=== PATIENT | male | born 1980 | race African-American/Black ===

== ENCOUNTER 2021-01-11 17:31 | Emergency (ER) | payer SELFPAY ==
--- NOTE | ~2021-01-11 | CT_ITS ---
EXAMINATION: CT brain wo con DATE: 01/11/2021 18:14 INDICATION: Head injury. Seizure. TECHNIQUE: Computed tomography (CT) of the head was performed without intravenous contrast. The mA wa s adjusted according to patient size. Iterative reconstruction technique was employed. Exam dose: 60 5.33 mGy-cm total exam DLP. COMPARISON: None FINDINGS: No intracranial mass lesion or hemorrhage or cerebrovascular accident, midline shift or mas s effect effect, subdural or epidural hematoma is detected. Normal ventricular size. Normal mahajan-whit e matter differentiation. No skull fracture or bone destruction. The mastoid air cells and included paranasal sinuses are unrem arkable. IMPRESSION: Negative Reviewed, dictated and finalized at [facility] Reviewed, dictated and finalized at [facility] IMPRESSION: Negative
--- NOTE | 2021-01-11 17:27 | PC.NURSE ---
pt seen wandering in ER parking lot. Pt walks in attempting to get through locked doors. pt yells I'm a pt let me through. Asked pt for name, pt refused, no pt arm band in place. Pt belligerent, yelling i fell and busted my head cant you see! again asked pt for name and he continued to yell he was a pt and try to break through locked doors. ED security in scene. States RN was looking for pt. Pt states see! Pt yelling i can come and go as I please, I needed to get fresh air. Informed pt of rules and safety of ER. Pt refuses to listen. States he can do what he wants. Security to escort pt back to his room.
--- NOTE | 2021-01-11 17:38 | ED.SEIZURE ---
HPI - Seizure General Chief Complaint: Seizure Stated Complaint: SEIZURE Source: patient Mode of arrival: ambulatory Limitations: other (patient does not fully remember event) History of Present Illness HPI Narrative: This is a 40 year old male that presents to the ER via EMS after a seizure today. Reports he was at work and had a seizure. Upon EMS arrival patient was post ictal. Patient does report history of seizures. He has not taken his antiepileptic in over a year because he did not feel he needed it anymore. Denies fever, vision changes, vomiting, numbness or weakness. Related Data Allergies Allergy/AdvReac Type Severity Reaction Status Date / Time No Known Allergies Allergy Verified 01/11/21 21:08 Review of Systems Review of Systems: CONSTITUTIONAL: Denies fever GASTROINTESTINAL: Denies vomiting MUSCULOSKELETAL: Denies back pain, joint pain, or myalgia. NEUROLOGIC: Denies headache, numbness, or weakness. All systems reviewed & are unremarkable except as noted in HPI and below PMFSH Past Medical History Medical History (Updated 01/11/21 @ 21:06 by Zoie Batista PA-C) History of epilepsy Social History Social History (Updated 01/11/21 @ 17:42 by Zoie Batista PA-C) Smoking status: Never smoker Substance use: never Exam Narrative: GENERAL: Well-appearing, well-nourished, and in no acute distress. HEAD: Normocephalic. 3 cm linear laceration into subcutaneous tissue present to the back of the scalp EYES: PERRLA and EOMI. ENT: Nares clear, no rhinorrhea or epistaxis. Mucous membranes moist. Oropharynx without tonsillar hypertrophy exudate or other lesions. Bilateral TMs pearly mahajan non-bulging NECK: Supple. No adenopathy or masses. No midline cervical spine tenderness CHEST: Clear to auscultation. No respiratory distress. No wheezes rales or rhonchi HEART: Regular rate and rhythm. No murmur heard. Normal peripheral pulses. EXTREMITIES: Normal range of motion. No edema or obvious deformity. SKIN: Warm, dry, no rash. NEURO: No focal deficits. Alert and oriented x3. Cranial nerves II to XII grossly intact PSYCH: Normal mood and affect Course Vital Signs Vital signs: Vital Signs Pulse Rate 77 01/11/21 21:07 Respiratory Rate 18 01/11/21 21:07 Blood Pressure 152/98 H 01/11/21 21:07 Pulse Oximetry 100 01/11/21 21:07 Pulse Rate 77 01/11/21 21:07 Respiratory Rate 18 01/11/21 21:07 Blood Pressure 152/98 H 01/11/21 21:07 Pulse Oximetry 100 01/11/21 21:07 Procedures Laceration Laceration 1: Date: 01/11/21 Time: 21:06 Site: scalp Size (cm): 3 Description: linear Depth: simple, single layer Local Anesthetic: lidocaine 1% and with epi Amount of anesthesia used (mL): 2 Pre-repair: irrigated ====== Skin Level ====== Skin layer closed with: regina Number of sutures: 6 ====== Subcutaneous Layer ====== ====== Muscle Layer ====== ====== Tendon Layer ====== MDM - Seizure MDM Narrative Medical decision making narrative: Patient presents the emergency department after a seizure today. Patient was at work and had witnessed seizure-like activity. Upon EMS arrival patient was postictal. On arrival to the ED patient is alert and oriented. He is neurologically intact. He has no complaints other than a laceration to the scalp. His vitals are stable. CBC and metabolic panel without concerning findings. CT scan of the brain is without acute findings. Patient's wound was irrigated and closed with regina. Patient refused a tetanus vaccination. Made aware of risks of doing so. Patient does have history of seizures. Reports he stopped taking his antiepileptic medication because he did not think he needed anymore. He has no interest in restarting it. He does report that if I give him a neurologist he will follow up with him. Patient will be given neurology for follow-up. He was given [place]
--- NOTE | 2021-01-11 17:49 | PC.NURSE ---
patient refused tetnus shot. refused to provide information about allergies or medications
[2021-01-11 18:05] LABS: Basophils Absolute Auto 0.1 K/mm3 (0.0-0.1); Basophils Percent Auto 0.5 % (0.2-1.2); Eosinophils Absolute Auto 0.1 K/mm3 (0-0.3); Eosinophils Percent Auto 0.9 % (0-4.4); Hematocrit 47.4 % (42.0-52.0); Hemoglobin 15.3 g/dL (14.0-18.0); Immature Granulocyte Absolute 0.03 K/mm3 (0.00-0.031); Immature Granulocyte Percent A 0.3 % (0-0.5); Lymphocytes Absolute Auto 1.42 K/mm3 (0.9-3.2); Lymphocytes Percent Auto 13.5 % (18.3-44.2); Mean Corpuscular HGB Conc 32.3 g/dl (32-36); Mean Corpuscular Hemoglobin 27.2 pg (26-34); Mean Corpuscular Volume 84.3 fl (80-100); Mean Platelet Volume 9.2 fl (7.4-10.4); Monocytes Absolute Auto 0.6 K/mm3 (0.1-0.6); Monocytes Percent Auto 5.6 % (2.6-8.5); Neutrophils Absolute Auto 8.4 K/mm3 (1.3-6.7); Neutrophils Percent Auto 79.2 % (45.5-73.1); Platelet Count Result 318 k/mm3 (150-375); Red Blood Count 5.62 M/mm3 (4.6-6.20); Red Cell Distribution Width 13.5 % (11.5-14.5); White Blood Count 10.6 K/mm3 (4.5-10.0)
[2021-01-11 18:15] LABS: Ethanol < 10 mg/dL (<10); Magnesium 2.1 mg/dL (1.6-2.3)
[2021-01-11 18:23] LABS: Alanine Aminotransferase 16 U/L (4-50); Albumin Level 4.7 g/dL (3.5-5.1); Alkaline Phosphatase 118 U/L (38-126); Anion Gap 11 mmol/L (8-16); Aspartate Amino Transferase 28 U/L (17-59); Bilirubin,Total 0.3 mg/dL (0.2-1.3); Blood Urea Nitrogen 26 mg/dL (9-20); Calcium 9.6 mg/dL (8.4-10.2); Carbon Dioxide 21 mmol/L (22-30); Chloride 108 mmol/L (98-107); Estimated Glomerular Filt Rate > 60; Glucose 121 mg/dL (65-110); Potassium 4.3 mmol/L (3.4-5.0); Sodium 140 mmol/L (137-145)
[2021-01-11] MEDS: LIDOCAINE, EPINEPHRINE, TETRACAINE VISCOUS SOLN 3 ML TOPICAL (20:30)
[2021-01-11 21:07] VITALS: BP 152/98; PULSE 77; RESP 18; O2SAT 100
[2021-01-11 21:48] VITALS: BP 150/90; PULSE 78; RESP 18
--- NOTE | 2021-01-11 22:01 | PC.NURSE ---
pt has been discharged and is actively refusing to leave the room. Security at bedside and [facility] has been called to assist.
== END 2021-01-11 21:49 | disposition home or self-care (01) ==
PROVIDERS: Physician Assistant; Emergency Provider Emergency Medicine
DX: G40.909 Epilepsy, unspecified, not intractable, without status epilepticus (principal); S01.01XA Laceration without foreign body of scalp, initial encounter; Z91.14 Patient's other noncompliance with medication regimen; X58.XXXA Exposure to other specified factors, initial encounter
CPT/HCPCS: 12002; 36415; 70450; 80053; 80307; 83735; 85025; 99283; 99284